=== PATIENT | female | born 1960 | race Caucasian/White ===

== ENCOUNTER 2022-07-15 13:38 | Emergency (ER) | payer OTHER ==
[2022-07-15] MEDS ORDERED: XYLOCAINE 1% HCL 20 ML MDV ONE ×2 (13:47→14:15)
[2022-07-15] MEDS ORDERED: Adacel Vial IM ONE ×2 (13:47→13:52)
[2022-07-15] MEDS ORDERED: XYLOCAINE 1% HCL 20 ML MDV IJ ONE ×2 (13:47→14:46)
[2022-07-15 13:50] VITALS: O2SAT 98
--- NOTE | 2022-07-15 14:01 | ERPHSYRPT ---
- History of Present Illness Time Seen by Provider: 07/15/22 13:45 Source: patient Exam Limitations: no limitations Patient Subjective Stated Complaint: Pt states "I was pulling romero and I backed into the edge of my lawnmower deck and cut my calf." Triage Nursing Assessment: PT presented alert and oriented X 3, skin wpd. pt ambulates with a slight limp. PT has lacerationnoted to right calf, tissue exposed. Physician History: This is a 63-year-old white female who accidentally cut her skin at the level of the mid calf on the right side. She backed into the sharp edge of her lawn more prior to arrival. Her tetanus status is not up-to-date. Patient was [facility] seen at [facility] and then they told her to come to the emergency department because they felt it was too deep. Occurred: just prior to arrival Quality: aching Severity of Pain-Max: mild Severity of Pain-Current: mild Lower Extremities Pain: other: right (Calf) Modifying Factors: Improves With: movement (Tender) Associated Symptoms: none Allergies/Adverse Reactions: No Known Drug Allergies Allergy (Verified 07/15/22 13:50) Hx Tetanus, Diphtheria Vaccination/Date Given: No Hx Influenza Vaccination/Date Given: Yes Hx Pneumococcal Vaccination/Date Given: No Immunizations Up to Date: Yes Travel Risk - International Travel Have you traveled outside of the country in past 3 weeks: No - Coronavirus Screening Are you exhibiting any of the following symptoms?: No Close contact with a COVID-19 positive Pt in past 14-21 Days: No - Vaccine Status Have you recieved a Covid-19 vaccination: Yes [employer] Department: Unknown - Vaccination Dates Dates if Unknown: 2020 - Review of Systems Constitutional: No Symptoms Eyes: No Symptoms Ears, Nose, & Throat: No Symptoms Respiratory: No Symptoms Cardiac: No Symptoms Abdominal/Gastrointestinal: No Symptoms Genitourinary Symptoms: No Symptoms Musculoskeletal: Injury (Right posterior calf skin laceration) Skin: Other (Laceration of the skin overlying the right posterior calf) Neurological: No Symptoms Psychological: No Symptoms Endocrine: No Symptoms Hematologic/Lymphatic: No Symptoms Immunological/Allergic: No Symptoms All Other Systems: Reviewed and Negative - Past Medical History Pertinent Past Medical History: No - Past Surgical History Past Surgical History: Yes Other Surgical History: left knee - Social History Smoking Status: Never smoker Exposure to second hand smoke: No Drug Use: none Patient Lives Alone: Yes - Nursing Vital Signs Nursing Vital Signs: Initial Vital Signs Temperature 98.8 F 07/15/22 13:42 Pulse Rate 101 H 07/15/22 13:42 Respiratory Rate 20 07/15/22 13:42 Blood Pressure 202/106 07/15/22 13:42 O2 Sat by Pulse Oximetry 98 07/15/22 13:42 Pain Scale Pain Intensity 2 - Physical Exam General Appearance: no apparent distress, alert Eyes, Ears, Nose, Throat Exam: normal ENT inspection, moist mucous membranes Neck Exam: normal inspection, non-tender, supple, full range of motion Cardiovascular/Respiratory Exam: chest non-tender, no respiratory distress Gastrointestinal/Abdominal Exam: non-tender Back Exam: normal inspection, normal range of motion, No CVA tenderness, No vertebral tenderness Hips Exam: bilateral: non-tender, normal inspection, normal range of motion, no evidence of injury Legs Exam: right leg: soft tissue tenderness (Laceration of the skin overlying the right posterior calf measuring approximately 3-1/2 cm. There is skin tear overlying the laceration. The laceration is into the subcutaneous tissue layer but not to the muscle), left leg: non-tender, normal inspection, normal range of motion, no evidence of injury Knees Exam: bilateral knee: non-tender, normal inspection, normal range of motion Ankle Exam: bilateral ankle: non-tender, normal inspection, normal range of motion, no evidence of injury Foot Exam: bilateral foot: non-tender, normal inspection, normal range of m otion, no evidence of injury Neuro/Tendon Exam: normal sensation, normal motor functions, normal tendon functions, no evidence tendon injury Mental Status Exam: alert, oriented x 3, cooperative Skin Exam: normal color, warm, dry, laceration (3-1/2 to 4 cm laceration skin overlying right calf. No active bleeding. Laceration is through the skin and into the subcutaneous tissue but not to the level of the muscle. No active bleeding. No foreign body appreciated) SpO2 Interpretation: normal SpO2: 98 O2 Delivery: Room Air Procedures - Laceration/Wound Repair Right Posterior Calf Time of Procedure: 14:15 Wound Location: Right, lower leg (Posterior calf) Wound Length (cm): 4 Wound's Depth, Shape: superficial, into subcut (Not to the muscle) Wound Explored: clean (Evaluation performed to the base and above this field and no foreign bodies are noted.) Irrigated: Yes (Hibiclens and saline solution mixture 50-50) Hibiclens Prep: Yes Anesthesia: local, 1% Lidocaine Volume Anesthetic (ccs): 12 Wound Debrided: minimal Wound Repaired With: sutures, Palmer (In addition to the 3 simple interrupted sutures of 3-0 Ethilon, 8 skin muriel were placed to approximate the skin edges) Suture Size/Type: 3-0, ethilon Number of Sutures: 3 Layer Closure?: No Sterile Dressing Applied?: Yes Progress: 07/15/22 14:26 There were no complications. Patient Toller procedure well. Pressure dressing was applied. - Course Nursing assessment & vital signs reviewed: Yes Ordered Tests: Active Orders 24 hr Category Date Time Status Wound Care STAT Care 07/15/22 13:47 Active Medication Summary Discontinued Medications Generic Name Dose Route Start Last Admin Trade Name Freq PRN Reason Stop Dose Admin Bacitracin Zinc 0.9 each 07/15/22 14:23 07/15/22 14:28 Bacitracin Packet 1 Each Pckt TP 07/15/22 14:24 0.9 each STAT ONE Administration Bacitracin Zinc Confirm 07/15/22 14:27 Bacitracin Packet 1 Each Pckt Administered 07/15/22 14:28 Dose 1 each .ROUTE .STK-MED ONE Diphtheria/Tetanus/Acell Pertussis 0.5 ml 07/15/22 13:47 07/15/22 13:54 Tdap --Diph,Pertuss(Acell),Tet Vac/Pf 0.5 Ml Vial IM 07/15/22 13:48 0.5 ml .ONCE ONE Administration Diphtheria/Tetanus/Acell Pertussis Confirm 07/15/22 13:52 Tdap --Diph,Pertuss(Acell),Tet Vac/Pf 0.5 Ml Vial Administered 07/15/22 13:53 Dose 0.5 ml IM .STK-MED ONE Lidocaine HCl 5 ml 07/15/22 13:47 07/15/22 13:55 Lidocaine Hcl 1% 20 Ml Mdv 20 Ml Ml IJ 07/15/22 13:48 5 ml STAT ONE Administration Lidocaine HCl Confirm 07/15/22 13:47 Lidocaine Hcl 1% 20 Ml Mdv 20 Ml Ml Administered 07/15/22 13:48 Dose 1 ml .ROUTE .STK-MED ONE Lidocaine HCl Confirm 07/15/22 14:15 Lidocaine Hcl 1% 20 Ml Mdv 20 Ml Ml Administered 07/15/22 14:16 Dose 1 ml .ROUTE .STK-MED ONE - Progress Progress: improved, pain not gone completely Counseled pt/family regarding: diagnosis, need for follow-up - Departure Departure Disposition: Home Clinical Impression: Laceration of right calf Condition: Stable Critical Care Time: No Additional Instructions: Keep the pressure dressing in place for 24 hours. After 24 hours, remove the pressure dressing and wash the site daily with soap and water. Dry the site then place antibiotic ointment to the laceration repair site daily and cover with a bandage. Wound evaluation in 10 to 12 days. Make sure that the suture/staple removal is not completely performed on the first day of wound evaluation. Have patient return in a few days after a few of the sutures/muriel are removed for reassessment and complete removal of the remaini ng sutures and muriel. Take your medication as prescribed. Prescriptions: Hydrocodone/APAP 5/325 [[place] 5/325 mg] 1 each PO Q8H PRN PRN #6 tablet MDD 3 PRN Reason: Pain Cephalexin Mh 500 mg [Keflex 500 mg] 500 mg PO TID #21 cap
[2022-07-15] MEDS ORDERED: BACIGUENT PACKET TP ONE (14:23)
[2022-07-15] MEDS ORDERED: BACIGUENT PACKET ONE (14:27)
[2022-07-15 14:42] VITALS: BP 178/104; PULSE 98
== END 2022-07-15 14:52 | disposition home or self-care (01) ==
LOC: ED 13:38
DX: S81.811A Laceration without foreign body, right lower leg, initial encounter (principal); W31.89XA Contact with other specified machinery, initial encounter; Y93.H2 Activity, gardening and landscaping; Y92.007 Garden or yard of unspecified non-institutional (private) residence as the place of occurrence of the external cause; Z79.891 Long term (current) use of opiate analgesic
CPT/HCPCS: 12002; 90471; 90715; 96372; 99283; A9270-GY